=== PATIENT | female | born 1990 | race Caucasian/White ===

== ENCOUNTER 2019-10-03 20:54 | Emergency (ER) | payer OTHER ==
[~2019-10-03] VITALS: Ht 160 cm; Wt 79.8 kg
[~2019-10-03 20:54] MED LIST: CEFU250T PO
[2019-10-03] MEDS ORDERED: LIDOCAINE 1% INJ 20 ML 20 ML VIAL ONE (21:06)
[2019-10-03] MEDS ORDERED: AMOX-358 PO (21:23)
--- NOTE | 2019-10-03 21:23 | ED General ---
General Chief Complaint: Bite-Animal/Human/Insect Stated Complaint: DOG BITE INSIDE MOUTH Nursing Triage Note: PT. REPORTED SHE WAS LYING ON THE [place] AND HER DOG WAS LAYING BY HER AND REACHED UP AND BIT HER UNDER HER LIP ON THE LEFT SIDE INSIDE OF HER MOUTH. Nursing Sepsis Screen: No Definite Risk Source of Information: Patient, RN/MD Exam Limitations: No Limitations History of Present Illness Date Seen by Provider: Oct 03, 2019 Time Seen by Provider: 20:50 Initial Comments This patient is a 29-year-old female presents to the emergency department after being hit her home pet dog. Patient is a laceration to her upper lip between her lip and her upper gums along the maxilla inside the mouth no other lacerations seen. No active bleeding at this time. Patient states the animal has all the shots and is a family pet. Incident was provoked and accidentally. Timing/Duration: 1/2 Hour Severity: Mild Associated Systoms: Denies Symptoms Allergies and Home Medications Allergies Coded Allergies: tramadol (Verified Allergy, Mild, 08/16/15) Home Medications Cefuroxime Axetil 250 Mg Tablet, 250 MG PO BID Prescribed by: ROGER CAMERON on 08/16/152033 Patient Home Medication List Home Medication List Reviewed: Yes Review of Systems Review of Systems Constitutional: see HPI EENTM: see HPI; No no symptoms reported, No ear discharge, No hearing loss, No ear pain, No blurred vision, No double vision, No eye pain, No tearing, No visi on loss, No dental problems, No hoarseness, No mouth pain, No mouth swelling, No epistaxis, No nose congestion, No nose pain, No throat pain, No throat swelling, No other Respiratory: No no symptoms reported, No see HPI, No cough, No dyspnea on exertion, No hemoptysis, No orthopnea, No phlegm, No short of breath, No stridor, No wheezing, No other Cardiovascular: No no symptoms reported, No see HPI, No chest pain, No edema, No Hx of Intervention, No palpitations, No syncope, No vascular heart diseas, No other Gastrointestinal: No RUQ, No LUQ, No RLQ, No LLQ, No no symptoms reported, No see HPI, No abdominal pain, No constipation, No diarrhea, No dysphagia, No hematemesis, No heartburn, No jaundice, No loss of appetite, No melena, No nausea, No vomiting, No other Genitourinary: No no symptoms reported, No see HPI, No decreased output, No discharge, No dysuria, No frequency, No hematuria, No hesitancy, No incontinence, No nocturia, No pain, No other Skin: No no symptoms reported; see HPI; No change in color, No change in hair/nails, No dryness, No hx of skin cancer, No lesions, No lumps, No pruritus, No rash, No other All Other Systems Reviewed Negative Unless Noted: Yes Past Alistrn-Gwykzc-Wnnlgq Hx Patient Social History Recent Foreign Travel: No Contact w/Someone Who Travel: No Recent Infectious Disease Expo: No Seasonal Allergies Seasonal Allergies: No Past Medical History Gallbladder, Tonsillectomy Reproductive Disorders: No Sexually Transmitted Disease: No HIV/AIDS: No Adverse Reaction/Blood Tranf: No Physical Exam Vital Signs Vital Signs - First Documented 10/03/19 20:58 Temp 36.6 Pulse 93 Resp 18 B/P (MAP) 142/85 (104) Pulse Ox 100 O2 Delivery Room Air Capillary Refill : Less Than 3 Seconds Height, Weight, BMI Height: 5'3" Weight: 165lbs. oz. 74.217920li; 31.00 BMI Method:Stated General Appearance: No Apparent Distress, WD/WN HEENT: PERRL/EOMI, TMs Normal, Normal ENT Inspection, Pharynx Normal, Other (patient has a laceration inside the mouth for the upper lip meets the upper gum. Laceration is about 1 cm. No active bleeding) Respiratory: Chest Non Tender, Lungs Clear, Normal Breath Sounds, No Accessory Muscle Use, No Respiratory Distress Cardiovascular: Regular Rate, Rhythm, No Edema, No Gallop, No JVD, No Murmur, Normal Peripheral Pulses Skin: Normal Color, Warm/Dry Procedures/Interventions Wound Location: Other (oral cavity this patient in the upper lip in the maxillary gum.) Wound's Depth, Shape: superficial, linear Wound Explored: clean Irrigated w/ Saline (ccs): 200 Anesthesia: 1% Lidocaine Suture: Monocryl (Polysorb 5.0) Suture Size: 5-0 F5-2 Number of Sutures: 1 Progress Sutures with one rskqpp-dp-wknro stitch to bring approximate edges. Patient tolerated well. Progress/Results/Core Measures Suspected Sepsis Recent Fever Within 48 Hours: No Infection Criteria Present: None New/Unexplained Altered Menta: No Sepsis Screen: No Definite Risk SIRS Temperature: Pulse: 93 Respiratory Rate: 18 Blood Pressure 142 /85 Mean: 104 Results/Orders My Orders Orders - JERRY DAVISON MD Lidocaine 1% Inj 20 Ml (Xylocaine 1% Inj (10/03/19 21:06) Vital Signs/I&O 10/03/19 20:58 Temp 36.6 Pulse 93 Resp 18 B/P (MAP) 142/85 (104) Pulse Ox 100 O2 Delivery Room Air Capillary Refill : Less Than 3 Seconds Blood Pressure Mean: 104 Progress Note : Time: 21:21 Progress Note Patient doing well. Patient will have a tetanus shot prior to discharge. Suture in place. Patient is aware that the suture may dissolve within a week. Patient should not pull on suture material. Take antibiotics as instructed. Have clear liquid diet and advance as tolerated after sutures haven't dissolved. Follow-up with PCP in 2-3 days Departure Impression Primary Impression: Dog bite Additional Impression: Lip laceration Disposition: 01 HOME, SELF-CARE Condition: Stable Departure-Patient Inst. Decision time for Depature: 21:22 Referrals: NO,LOCAL PHYSICIAN (PCP) Primary Care Physician Patient Instructions: Laceration Repair, Animal Bites (DC) Add. Discharge Instructions: Patient is aware that the suture may dissolve within a week. Patient should not pull on suture material. Take antibiotics as instructed. Have clear liquid diet and advance as tolerated after sutures haven't dissolved. Follow-up with PCP in 2-3 days All discharge instructions reviewed with patient and/or family. Voiced understanding. Scripts Amoxicillin/Potassium Clav (Augmentin 875-125 Tablet) 1 Each Tablet 1 EACH PO BID, #14 TAB 0 Refills Prov: JERRY DAVISON MD 10/03/19 JERRY DAVISON MD Oct 03, 2019 21:23
[2019-10-03] MEDS ORDERED: TETANUS & DIPHTHERIA TOX,ADULT 0.5 ML (TENIVAC) IM ONE (21:30)
[2019-10-03 21:41] VITALS: BP 142/85
--- OUTSIDE RECORDS SUMMARY | 2019-10-03 22:12 | XMS REPORT | Encounter Summary ---
Author Author [facility] Organization [facility] Address Unknown Phone Unavailable Care Team Providers Care Band Director Name Role Phone PCP Unavailable Reason for Visit * (Routine) Referred By Contact Referred To Contact Status Reason Specialty Diagnoses / [place] [address] [facility] [address] [place] [address] Closed Diagnoses state, incidental P rocedures US OB > = 14 weeks Transabdominal (Anatomy screen) Encounter Details Care Team Description Date Type Department state, incidental 08/07/2014 [facility] [address] [place] [address] Social History Date Tobacco Use Types Packs/Day Years Used Never Assessed Sex Assigned at Date Recorded Not on file Industry Job Start Date Occupation Not on file Not on file Not on file Travel End Travel History Travel Start No recent travel history available. documented as of this encounter Medications at Time of Discharge Start Date End Date Medication Sig Dispensed Refills 06/12/2014 06/13/2015 TYLENOL PM EXTRA STRENGTH Take by 0 25-500 mg Tab mouth. documented as of this encounter Plan of Treatment Not on filedocumented as of this encounter Visit Diagnoses Diagnosis state, incidental documented in this encounter
--- OUTSIDE RECORDS SUMMARY | 2019-10-03 22:12 | XMS REPORT | Encounter Summary ---
Author Author [facility] Organization [facility] Address Unknown Phone Unavailable Care Team Providers Care Interventional Technologist Name Role Phone PCP Unavailable Reason for Visit * Reason Comments Chest pain Pt was chasing her horses t his AM and started to have right sided neck pain, chest pain and SOA and dizziness and she's tripping over her feet. She started to get sweaty when she was changing her kids diaper. Pt is also nauseated. Encounter Details Care Team Description Date Type Department Nate Cabrales MD [address] [place] [address] [phone] Acute chest pain (Primary Dx) 06/10/[address] [address] Social History Date Tobacco Use Types Packs/Day Years Used Never Smoker Smokeless Tobacco: Never Used Drinks/Week oz/Week Comments Alcohol Use No Sex Assigned at Date Recorded Not on file Industry Job Start Date Occupation Not on file Not on file Not on file Travel End Travel History Travel Start No recent travel history available. documented as of this encounter Last Filed Vital Signs Reading Time Taken Comments Vital Sign 104/77 06/10/2017 3:30 PM CDT Blood Pressure 74 06/10/2017 3:30 PM CDT Pulse 36.6 C (97.9 F) 06/10/2017 1:49 PM CDT Temperature 18 06/10/2017 1:47 PM CDT Respiratory Rate 100% 06/10/2017 3:30 PM CDT Oxygen Saturation - - Inhaled Oxygen Concentration 64.9 kg (143 lb) 06/10/2017 1:47 PM CDT Weight 160 cm (5' 3") 06/10/2017 1:47 PM CDT Height 25.33 06/10/2017 1:47 PM CDT Body Mass Index documented in this encounter Discharge Instructions * Attachments The following attachments cannot be sent through Care Everywhere.* CHEST PAIN, UNCERTAIN CAUSE (LAO) * SHORTNESS OF BREATH (DYSPNEA) (LAO) documented in this encounter Medications at Time of Discharge Start Date End Date Medication Sig Dispensed Refills BUPROPION HCL (WELLBUTRIN Take by 0 SR ORAL) mouth. documented as of this encounter ED Notes * Nate Cabrales MD - 06/10/2017 2:49 PM CDT 06/10/2017 [facility] History Chief Complaint Patient presents with Chest pain Pt was chasing her horses this AM and started to have right sided neck pain, c hest pain and SOA and dizziness and she's tripping over her feet. She started to get sweaty when she was changing her kids diaper. Pt is also nauseated. HPI 47-year-old female presents today complaining of chest pain and pressure, patien t states she was chasing horses, stated she started having shortness of breath, dizziness, felt like she was having a hard time breathing, patient states she wa s feeling nauseated, patient states she is feeling better now but still feels ch est tightness shortness of breath and pain in her back, patient states she is ta kayleigh a weight loss medication and has been taking it for a year, she is not sure exactly what in it, patient denies any fever chills cough, denies ever having t hese symptoms before. States they are improved but still mildly present. Past Medical History: Diagnosis Date Depression Past Surgical History: Procedure Laterality Date CHOLECYSTECTOMY NM REMOVAL GALLBLADDER Family History Problem Relation Age of Onset Clotting disorder Mother Blood clot in vein; Alcohol abuse Father Family history of alcoholism; Social History Substance Use Topics Smoking status: Never Smoker Smokeless tobacco: Never Used Alcohol use No Review of Systems Constitutional: Negative. HENT: Negative. Eyes: Negative. Respiratory: Negative. Cardiovascular: Negative. Gastrointestinal: Negative. Endocrine: Negative. Genitourinary: Negative. Musculoskeletal: Negative. Skin: Negative. Allergic/Immunologic: Negative. Neurological: Negative. Hematological: Negative. Psychiatric/Behavioral: Negative. All other systems reviewed and are negative. Physical Exam BP 102/65 | Pulse 79 | Temp 36.6 C (97.9 F) | Resp 18 | Ht 1.6 m (5' 3") | Wt 64.9 kg (143 lb) | LMP 06/08/2017 | SpO2 100% | BMI 25.33 kg/m Weight Method: Stated Physical Exam Constitutional: She is oriented to person, place, and time. She appears well-dev eloped and well-nourished. No distress. HENT: Head: Normocephalic and atraumatic. Nose: Nose normal. Mouth/Throat: Oropharynx is clear and moist. Eyes: Conjunctivae and EOM are normal. Neck: Normal range of motion. Neck supple. Cardiovascular: Normal rate, regular rhythm and normal heart sounds. Exam revea ls no gallop and no friction rub. Pulmonary/Chest: Effort normal and breath sounds normal. No respiratory distress . She has no wheezes. She exhibits no tenderness. Abdominal: Soft. Bowel sounds are normal. She exhibits no distension. There is n o tenderness. There is no rebound and no guarding. Musculoskeletal: Normal range of motion. She exhibits no edema or tenderness. Neurological: She is alert and oriented to person, place, and time. No cranial n erve deficit. She exhibits normal muscle tone. Coordination normal. Skin: Skin is warm and dry. No rash noted. She is not diaphoretic. No erythema. Psychiatric: She has a normal mood and affect. Her behavior is normal. Thought c ontent normal. Nursing note and vitals reviewed. ED Course Procedures MDM The labs from this visit are Results for orders placed or performed during the hospital encounter of 06/10/17 (from the past 24 hour(s)) Complete Blood Count and Differential (manual count if needed) Result Value Ref Range WBC 6.23 4.00 - 11.00 TH/uL RBC 4.74 4.00 - 5.00 MIL/uL Hemoglobin 14.0 12.0 - 15.0 g/dL Hematocrit 41 36 - 45 % MCV 85 80 - 99 fL MCH 30 27 - 34 pg MCHC 35 32 - 36 % RDW 13.3 9.0 - 14.5 % Platelet Count 240 140 - 400 TH/uL MPV 10.0 9.4 - 12.3 fL Nucleated RBCs 0 0 - 0 /100 % Neutrophils 65 45 - 78 % %Lymphocytes 28 15 - 47 % %Monocytes 6 0 - 12 % %Eosinophils 0 0 - 7 % %Basophils 0 0 - 2 % % Imm Grans 0 0 - 1 % # Granulocytes 4.09 1.70 - 6.80 TH/uL # Lymphocytes 1.74 1.00 - 3.30 TH/uL # Monocytes 0.37 0.20 - 0.90 TH/uL # Eosinophils 0.02 0.00 - 0.40 TH/uL # Basophils 0.02 0.00 - 0.10 TH/uL Comprehensive Metabolic Panel Result Value Ref Range Sodium 145 133 - 147 MEQ/L Potassium 3.7 3.5 - 5.3 MEQ/L Chloride 106 96 - 112 MEQ/L Carbon Dioxide 21 20 - 32 MEQ/L Anion Gap 17 5 - 17 Calcium 10.3 8.4 - 10.5 mg/dL Glucose 85 70 - 100 mg/dL Protein Total Serum 8.7 (H) 6.0 - 8.2 g/dL Albumin 5.3 (H) 3.5 - 5.0 g/dL Alkaline Phosphatase 56 42 - 140 IU/L Alanine Aminotransferase 41 13 - 69 IU/L Aspartate Aminotransferase 27 15 - 46 IU/L Bilirubin Total 0.9 0.2 - 1.3 mg/dL Blood Urea Nitrogen 12 7 - 26 mg/dL Creatinine 0.9 0.4 - 1.1 mg/dL GFR Female AA 89 60 - 200 GFR Female Non-AA 74 60 - 200 Troponin Result Value Ref Range Troponin <0.01 0.00 - 0.03 ng/mL D Dimer Result Value Ref Range D Dimer <0.27 0.00 - 0.40 ug/mL FEU The radiology results are XR Chest single view frontal Final Result No acute cardiopulmonary process. 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 There are not any ST c hanges concerning for ischemia. Work appear normal, recommended stopping diet medication, and following up with primary doctor. States there is no chance she is . ED Clinical Impression 1. Acute chest pain Patient ED Dispo ED Disposition Discharge Nate Cabrales MD 06/10/17 4210 * Grupo Carvalho RN - 06/10/2017 2:27 PM CDT Pt. Provided warm blanket upon request. documented in this encounter Plan of Treatment Not on filedocumented as of this encounter Procedures Comments Procedure Name Priority Date/Time Associated Diag nosis XR CHEST SINGLE VIEW STAT 06/10/2017 FRONTAL 2:24 PM CDT TROPONIN STAT 06/10/2017 2:03 PM CDT D DIMER STAT 06/10/2017 2:03 PM CDT COMPREHENSIVE METABOLIC STAT 06/10/2017 PANEL 2:03 PM CDT CBC AND DIFF (MANUAL DIFF STAT 06/10/2017 IF NECESSARY) 2:03 PM CDT ECG STAT 06/10/2017 1:49 PM CDT documented in this encounter Results * XR Chest single view frontal (06/10/2017 2:24 PM CDT) Specimen Impressions Performed At No acute cardiopulmonary process. ANJELICA Narrative Performed At Patient: VICKIE VALDEZ DOREENCLIFFORD Sex#: F # [id number] Aidan#: [id number] Location: [place] [address] Procedure Requested: [id number] XR CHEST SINGLE VIEW FRONTAL Reason for Exam: chest pain Exam Ordered: 06/10/2017 135 9 Exam Date/Time: 06/10/2017 1424 Begin exam date/time: 06/10/2017 1404 XR CHEST SINGLE VIEW FRONTAL INDICATION: chest pain COMPARISON STUDY: None. FINDINGS: Lungs and Pleura: No focal airspace dis ease or consolidation. The tracheobronchial tree and hilar structu res are normal. No pleural effusion or pneumothorax. Heart and Mediastinum: The cardiomedias tinal silhouette is normal. The great vessels of the thorax are unremar kable. Bones: The skeletal structures are unre markable. Procedure Note Interface, Rad Results In - 06/10/2017 2:39 PM CDT Patient: VICKIE VALDEZ Sex#: F # [id number] Aidan#: [id number] Location: [place] [address] Procedure Requested: [id number] XR CHEST SINGLE VIEW FRONTAL Reason for Exam: chest pain Exam Ordered: 06/10/2017 1359 Exam Date/Time: 06/10/2017 1424 Begin exam date/time: 06/10/2017 1404 XR CHEST SINGLE VIEW FRONTAL INDICATION: chest pain COMPARISON STUDY: None. FINDINGS: Lungs and Pleura: No focal airspace disease or consolidation. The tracheobronchial tree and hilar structures are normal. No pleural effusion or pneumothorax. Heart and Mediastinum: The cardiomediastinal silhouette is normal. The great vessels of the thorax are unremarkable. Bones: The skeletal structures are unremarkable. IMPRESSION No acute cardiopulmonary process. Performing Organization Address [facility] one Number ANJELICA * D Dimer (06/10/2017 2:03 PM CDT) [facility] D Dimer <0.27Comment: Cutoff value for 0.00 - 0.40 ug/ mL [facility] exclusion of venous [facility]U [facility] thromboembolism is <0.40 ug/mL FEU. Specimen Blood Performing Organization Address [facility] one Number [facility] [address] [place] [address] * Troponin (06/10/2017 2:03 PM CDT) [facility] Troponin <0.01 0.00 - 0.03 ng/mL [facility] Comment: [facility] Troponin Value Interpretation 0.00 - 0.03 Healthy 0.04 - 0.12 Increased Cardiac Risk >0.12 Myocardial Infarction Troponin may not become elevated until 6 to 8 hours after onset of symptoms. Specimen Blood Performing Organization Address [facility] one Number [facility] [address] [place] [address] * Comprehensive Metabolic Panel (06/10/2017 2:03 PM CDT) [facility] Sodium 145 133 - 147 MEQ/L [facility] Potassium 3.7 3.5 - 5.3 MEQ/L [facility] Chloride 106 96 - 112 MEQ/L [facility] Carbon Dioxide 21 20 - 32 MEQ/L [facility] Anion Gap 17 5 - 17 [facility] Calcium 10.3 8.4 - 10.5 mg/dL [facility] Glucose 85 70 - 100 mg/dL [facility] Protein Total 8.7 (H) 6.0 - 8.2 g/dL [facility] Serum [facility] Albumin 5.3 (H) 3.5 - 5.0 g/dL [facility] Alkaline 56 42 - 140 IU/L [facility] Phosphatase [facility] Alanine 41 13 - 69 IU/L [facility] Aminotransferas [facility] e Aspartate 27 15 - 46 IU/L [facility] Aminotransferas [facility] e Bilirubin Total 0.9 0.2 - 1.3 mg/dL [facility] Blood Urea 12 7 - 26 mg/dL [facility] Nitrogen [facility] Creatinine 0.9 0.4 - 1.1 mg/dL [facility] eGFR Female AA 89 60 - 200 [facility] Comment: [facility] Chronic Kidney Disease less than 60 mL/min/1.73 sq.m Kidney failure less than 15 mL/min/1.73 sq.m eGFR Female 74 60 - 200 [facility] Non-AA Comment: [facility] Chronic Kidney Disease less than 60 mL/min/1.73 sq.m Kidney failure less than 15 mL/min/1.73 sq.m Specimen Blood Performing Organization Address City/State/Zipcode Ph one Number [facility] [address] [place] [address] * Complete Blood Count and Differential (manual count if needed) (06/10/2017 2:03 PM CDT) WBC 6.23 4.00 - 11.00 TH/uL [facility] RBC 4.74 4.00 - 5.00 MIL/uL [facility] Hemoglobin 14.0 12.0 - 15.0 g/dL [facility] Hematocrit 41 36 - 45 % [facility] MCV 85 80 - 99 fL [facility] MCH 30 27 - 34 pg [facility] MCHC 35 32 - 36 % [facility] RDW 13.3 9.0 - 14.5 % [facility] Platelet Count 240 140 - 400 TH/uL [facility] MPV 10.0 9.4 - 12.3 fL [facility] Nucleated RBCs 0 0 - 0 /100 [facility] % Neutrophils 65 45 - 78 % [facility] %Lymphocytes 28 15 - 47 % [facility] %Monocytes 6 0 - 12 % [facility] %Eosinophils 0 0 - 7 % [facility] %Basophils 0 0 - 2 % [facility] % Imm Grans 0 0 - 1 % [facility] # Granulocytes 4.09 1.70 - 6.80 TH/uL [facility] # Lymphocytes 1.74 1.00 - 3.30 TH/uL [facility] # Monocytes 0.37 0.20 - 0.90 TH/uL [facility] # Eosinophils 0.02 0.00 - 0.40 TH/uL [facility] # Basophils 0.02 0.00 - 0.10 TH/uL [facility] Specimen Blood Performing Organization Address City/State/[facility] Ph one Number [facility] [address] [place] [address] * Electrocardiogram (ECG) (06/10/2017 1:49 PM CDT) Specimen Narrative Performed At [facility] ED Test Date: 2017-06-10 Pat Name: VICKIE VALDEZ Department: ERJ Room: [facility] 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 : 1990 Requested By: ALYSSA PISANO Order Number: [id number] Reading MD: Measurements Intervals [place] Rate: 82 P: 55 NM: 152 QRS: 61 QRSD: 88 T: 51 QT: 404 QTc: 472 Interpretive Statements SINUS RHYTHM Procedure Note Interface, External Ris In - 06/10/2017 1:50 PM CDT [facility] ED Test Date: 2017-06-10 Pat Name: VICKIE VALDEZ Department: ER Room: [facility] Gender: Female 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: [id number] : 1990 Requested By: ALYSSA PISANO Order Number: [id number] Reading MD: Measurements Intervals [place] Rate: 82 P: 55 NM: 152 QRS: 61 QRSD: 88 T: 51 QT: 404 QTc: 472 Interpretive Statements SINUS RHYTHM Performing Organization Address City/State/Zipcode Ph one Number [email or web address] documented in this encounter Visit Diagnoses Diagnosis Acute chest pain Unspecified chest pain documented in this encounter Administered Medications Action Date Dose Rate Site Medication Order MAR Action 06/10/2017 3:07 PM CDT 4 mg ondansetron (ZOFRAN) injection 4 mg Given 4 mg, Intravenous, Once, Thu06/10/17 at 1452, For 1 dose 06/10/2017 3:08 PM CDT 1,000 mL sodium chloride 0.9% (NS) IV Bolus Bolus from 1,000 mL, Intravenous, Once, Thu06/10/17 Bag at 1452, For 1 dose documented in this encounter
--- OUTSIDE RECORDS SUMMARY | 2019-10-03 22:12 | XMS REPORT | Clinical Summary ---
Author Author [facility] Organization [facility] Address Unknown Phone Unavailable Care Team Providers Care Animal Warden Name Role Phone PCP Unavailable Allergies Comments Active Allergy Reactions Severity Noted Date Tramadol Itching 05/11/2014 Medications End Date Status Medication Sig Dispensed Refills Start Date Active BUPROPION HCL (WELLBUTRIN Take by 0 SR ORAL) mouth. Active Problems Problem Noted Date 05/11/2014 Family History Medical History Relation Name Comments Alcohol abuse Father Family history of a lcoholism; Clotting disorder Mother Blood clot in vein; Relation Name Status Comments Father Mother Social History Date Tobacco Use Types Packs/Day Years Used Never Smoker Smokeless Tobacco: Never Used Drinks/Week oz/Week Comments Alcohol Use No Sex Assigned at Date Recorded Not on file Industry Job Start Date Occupation Not on file Not on file Not on file Travel End Travel History Travel Start No recent travel history available. Last Filed Vital Signs Reading Time Taken [...] 06/10/2017 1:47 PM CDT Body Mass Index Plan of Treatment Health Maintenance Due Date Last Done Comments Td # 1990 Cervical Cancer Screening 2009 via Pap Smear Influenza Vaccine (#1) 2020 Pneumococcal Vaccine: Aged Out No longer eligib le based on patient's age to Pediatrics (0 to 5 Years) complete this topic and At-Risk Patients (6 to 64 Years) Results Not on filefrom Last 3 Months Advance Directives For more information, please contact: [phone] Patient Nut Chopper Explanation Type Date Recorded Advance Directives and Living Will Power of Carton Inspector
--- OUTSIDE RECORDS SUMMARY | 2019-10-03 22:12 | XMS REPORT | Encounter Summary ---
Author Author [facility] Organization [facility] Address Unknown Phone Unavailable Care Team Providers Care Speech Language Therapist Name Role Phone PCP Unavailable Encounter Details Care Team Description Date [place] [address] [facility] [address] [place] [address] [phone] 07/12/2014 Hist-Appointmen [facility] CL t Social History Date Tobacco Use Types Packs/Day Years Used Never Assessed Sex Assigned at Date Recorded Not on file Industry Job Start Date Occupation Not on file Not on file Not on file Travel End Travel History Travel Start No recent travel history available. documented as of this encounter Last Filed Vital Signs Reading Time Taken Comments Vital Sign 124/72 07/12/2014 9:14 AM CDT Blood Pressure 80 07/12/2014 9:14 AM CDT Pulse 36.7 C (98 F) 07/12/2014 9:14 AM CDT Temperature - - Respiratory Rate - - Oxygen Saturation - - Inhaled Oxygen Concentration 71.7 kg (158 lb) 07/12/2014 9:14 AM CDT Weight 161.3 cm (5' 3.5") 07/12/2014 9:14 AM CDT Height 27.55 07/12/2014 9:14 AM CDT Body Mass Index documented in this encounter Progress Notes * Ledy Munguia MD - 07/12/2014 9:00 AM CDT Chief Complaint SONIA History of Present Illness 24 yo G1 @ 15 weeks presents for SONIA without complaints. MORROW resolved with clar itin use. Active Problems 1. (V22.2) Current Meds 1. Tylenol PM Extra Strength 500-25 MG Oral Tablet; Therapy: 12Jun2014 to Recorded Allergies 1. tramadol Vitals Signs [Data Includes: Current Encounter] Recorded: 12Jul2014 09:14AM Height: 5 ft 3.5 in Weight: 158 lb BMI Calculated: 27.55 BSA Calculated: 1.76 Blood Pressure: 124 / 72 Temperature: 98 F Heart Rate: 80 LMP: 15 weeks 1 day Results/Data Exam [Data Includes: Last 3 Months] 12Jul2014Apr11May2014 Systolic 124 104 128 Diastolic 72 76 70 Weight 158 lb 155 lb 2 oz 155 lb 2 oz Appearance, Urine yellow,clear Glucose Urine neg Urine Protein, Qualitative neg Leukocyte Alkaline Phosphatase neg Blood neg neg neg Nitrite neg GLUCOSE neg neg KETONE neg pH neg Protein neg neg OB Free Text: Completed at this visit: FHTs: 160 Reviewed progenity WNL Return to clinic: in 4 weeks Ultrasound Ordered to complete in 3-4 weeks Assessment 1. (V22.2) Plan 1. US OB more than = 14 Weeks Transabdominal (Anatomy screen); Status:Active; Requested for:12Jul2014; Signatures Electronically signed by : Ledy Munguia M.D.; Jul 12 2014 10:18AM PUNCH BOX TENDER (Author ) * Ledy Munguia MD - 07/12/2014 9:00 AM CDT Clinical Summary Patient Details for VICKIE GRAF Preferred Name Female Sex [id number], [place], [address] Address [place] Language 1990 Born Declined Race Declined Ethnicity Today's Appointment Ledy Munguia M.D. Provider 12 Jul 2014 09:00 AM Appointment Reason for Visit Issues Reviewed : Current Health Issues Past Surgical History History of Cholecystectomy Medications Medications: Medication Instructions Tylenol PM Extra Strength 500-25 MG Oral Tablet Allergies and Adverse Reactions tramadol; Reactions: Itching Vital Signs Date/Time 07/12/2014 9:14:00 AM Blood Pressure 124 / 72 Temperature 98 F Heart Rate 80 bpm Height 5 ft 3.5 in Weight 158 lb BMI Calculated 27.55 kg/m2 BSA Calculated 1.76 m2 LMP 15 weeks 1 day Results Dipstick, Collected/Examined: 12-Jul-2014 09:24AM : Value = yellow,clear; Normal : Value = neg; Normal : Value = neg; Normal : Value = neg; Normal Est: Value = neg; Normal : Value = neg; Normal Treatment Plans Appointment: Provider Date/Time Location Ledy Munguia M.D. 09 Aug 2014 09:00 AM [facility] Interventions US OB more than = 14 Weeks Transabdominal (Anatomy screen); To Be Done: 12 Jul 2014 Document Details [facility] Site Name Phone 12 Jul 2014 12:00 PM Created Date/Time [address] [address], [address],[place], [place],[address] Site Address Fax documented in this encounter Plan of Treatment Not on filedocumented as of this encounter Procedures Comments Procedure Name Priority Date/Time Associated Diag nosis URINALYSIS (INCLUDES Routine 07/12/2014 MICROSCOPIC REVIEW, IF 9:24 AM CDT INDICATED) documented in this encounter Results * Urinalysis (07/12/2014 9:24 AM CDT) Color, UA yellow,clear 0 OFFICE ENTERED Hemoglobin neg 0 OFFICE ENTERED Urine Glucose neg 0 OFFICE ENTERED Protein, Ur neg 0 OFFICE ENTERED Leukocyte neg 0 OFFICE ENTERED Esterase Nitrite Urine neg 0 OFFICE ENTERED Specimen Performing Organization Address City/State/[facility] Ph one Number OFFICE ENTERED documented in this encounter Visit Diagnoses Not on filedocumented in this encounter
--- OUTSIDE RECORDS SUMMARY | 2019-10-03 22:13 | XMS REPORT | Encounter Summary ---
Author Author [facility] Organization [facility] Address Unknown Phone Unavailable Care Team Providers Care Marine Equipment Preservation Inspector Name Role Phone PCP Unavailable Encounter Details Care Team Description Date [place] [address] [facility] [address] [place], [place] [address] 05/11/2014 [facility] Social History Date Tobacco Use Types Packs/Day Years Used Never Assessed Sex Assigned at Date Recorded Not on file Industry Job Start Date Occupation Not on file Not on file Not on file Travel End Travel History Travel Start No recent travel history available. documented as of this encounter Last Filed Vital Signs Reading Time Taken Comments Vital Sign 128/70 05/11/2014 10:07 AM DYED RAW STOCK BLOWER FEEDER Blood Pressure 70 05/11/2014 10:07 AM DYED RAW STOCK BLOWER FEEDER Pulse 36.6 C (97.8 F) 05/11/2014 10:07 AM DYED RAW STOCK BLOWER FEEDER Temperature - - Respiratory Rate - - Oxygen Saturation - - Inhaled Oxygen Concentration 70.4 kg (155 lb 2.1 oz) 05/11/2014 10:07 AM DYED RAW STOCK BLOWER FEEDER Weight 161.3 cm (5' 3.5") 05/11/2014 10:07 AM DYED RAW STOCK BLOWER FEEDER Height 27.05 05/11/2014 10:07 AM DYED RAW STOCK BLOWER FEEDER Body Mass Index documented in this encounter Progress Notes * Ledy Munguia MD - 05/11/2014 10:00 AM DYED RAW STOCK BLOWER FEEDER Clinical Summary Patient Details for VICKIE GRAF Preferred Name Female Sex [id number], [place], [address] Address [place] Language 1990 Born Declined Race Declined Ethnicity Today's Appointment Ledy Munguia M.D. Provider 11 May 2014 10:00 AM Appointment Reason for Visit Issues Reviewed : Current Health Issues Medications Medication not documented. Allergies and Adverse Reactions tramadol; Reactions: Itching Vital Signs Date/Time 05/11/2014 10:07:00 AM Blood Pressure 128 / 70 Temperature 97.8 F Heart Rate 70 bpm Height 5 ft 3.5 in Weight 155 lb 2.00 oz BMI Calculated 27.05 kg/m2 BSA Calculated 1.75 m2 LMP 22Mar2014 Results Results not documented. Treatment Plans Cystic Fibrosis Mutation; To Be Done: 11 May 2014 Interventions Profile 2; To Be Done: 11 May 2014 Urine Culture; To Be Done: 11 May 2014 Document Details [facility] Site Name Phone 11 May 2014 10:26 AM Created Date/Time [address] [facility], [facility] [address],[place],[address] Site Address Fax RAW STOCK BLOWER FEEDER * Ledy Munguia MD - 05/11/2014 10:00 AM DYED RAW STOCK BLOWER FEEDER Chief Complaint New OB History of Present Illness 24 yo G1 @ 7 weeks by LMP presents for her first OB visit. She notes some nause a, no vomiting. Fatigue. Did have one episode of dark spotting that she thinks w as implantation bleeding. Review of Systems HEENT Normal. Resp Normal. CV. Normal. GI. Normal. /ASSISTANT PRESS OPERATOR. Normal. MS/Rheum. Normal. Endo. Normal. Neuro. Normal. Heme. Normal. Derm. Normal. Psych. Normal. Active Problems 1. (V22.2) Past Medical History 1. No pertinent past medical history Surgical History 1. History of Cholecystectomy Family History 1. Family history of Blood clot in vein : Mother 2. Family history of alcoholism (V17.0) : Father Social History Non-smoker (V49.89) Allergies 1. tramadol Vitals Signs [Data Includes: Current Encounter] Recorded: 11May2014 10:07AM Height: 5 ft 3.5 in Weight: 155 lb 2 oz BMI Calculated: 27.05 BSA Calculated: 1.75 Blood Pressure: 128 / 70 Temperature: 97.8 F Heart Rate: 70 LMP: 22Mar2014 Results/Data Exam [Data Includes: Last 3 Months] 11May2014 Systolic 128 Diastolic 70 Weight 155 lb 2 oz Completed at this visit: New OB packet given New OB labs Reviewed diet, exercise, travel, exposure during Reviewed course of care Due at next visit: Review aneuploidy screening Return to clinic: in 4 weeks Comments: LEONIE 01/02/15 Ultrasound Transvaginal ultrasound performed with CRL at 6 weeks 2 days, FHTs 11 3. Normal sac. Yolk sac still visible and separation of amnion and chorion. Both ovaries visualized and appear normal. No free fluid. Physical Exam HEENT:. Normal. Teeth:. Normal. Thyroid:. Normal. Breasts:. Normal. Lungs:. Normal. Heart:. Normal. Abdomen:. Normal. Musculoskeletal:. Normal. Extremities:. Normal. Skin:. Normal. Lymph Nodes:. Normal. Vulva:. Normal. Vagina:. Normal. Cervix:. Normal. Adnexa:. Normal. Rectum:. Normal. Pap Done:. No. Assessment 1. (V22.2) Plan 1. Cystic Fibrosis Mutation; Status:Hold For - Hold for Specimen Collection; Re quested for:11May2014; 2. Profile 2; Status:Active; Requested for:11May2014; 3. Urine Culture; Status:Active; Requested for:11May2014; Signatures Electronically signed by : Ledy Munguia M.D.; May 11 2014 11:36AM DYED RAW STOCK BLOWER FEEDER (Author ) RAW STOCK BLOWER FEEDER documented in this encounter Plan of Treatment Not on filedocumented as of this encounter Procedures Comments Procedure Name Priority Date/Time Associated Diag nosis URINALYSIS (INCLUDES Routine 05/11/2014 MICROSCOPIC REVIEW, IF 4:42 PM DYED RAW STOCK BLOWER FEEDER INDICATED) documented in this encounter Results * Urinalysis (05/11/2014 4:42 PM DYED RAW STOCK BLOWER FEEDER) Color, UA yellow,clear 0 OFFICE ENTERED pH Urine neg 0 OFFICE ENTERED Hemoglobin neg 0 OFFICE ENTERED Urine Ketones Urine neg 0 OFFICE ENTERED Glucose neg 0 OFFICE ENTERED Protein, Ur neg 0 OFFICE ENTERED Leukocyte neg 0 OFFICE ENTERED Esterase Specimen Performing Organization Address City/State/Zipcode Ph one Number OFFICE ENTERED documented in this encounter Visit Diagnoses Not on filedocumented in this encounter
--- OUTSIDE RECORDS SUMMARY | 2019-10-03 22:13 | XMS REPORT | Encounter Summary ---
Author Author [facility] Organization [facility] Address Unknown Phone Unavailable Care Team Providers Care Rolled Seat Trimmer Name Role Phone PCP Unavailable Encounter Details Care Team Description Date Type Department 06/15/2014 Hist-Telephone [facility] Social History Date Tobacco Use Types Packs/Day Years Used Never Assessed Sex Assigned at Date Recorded Not on file Industry Job Start Date Occupation Not on file Not on file Not on file Travel End Travel History Travel Start No recent travel history available. documented as of this encounter Progress Notes * Provider, MD Jelly - 06/15/2014 9:01 AM CDT Recorded as Task Date: 06/15/2014 09:02 AM, Created By: Priti Basilio Task Name: Call Back Assigned To: Priti Basilio Regarding Patient: VICKIE GRAF, Status: Active Comment: Priti Basilio - 15 Jun 2014 9:02 AM TASK CREATED Caller: Ansley, Other; Other; Progenity called wanting to know dx code for pt? Thx Ledy Latham - 15 Jun 2014 9:39 AM TASK REPLIED TO: Previously Assigned To Ledy Munguia v22 Priti Basilio - 15 Jun 2014 9:46 AM TASK EDITED Noted. LDM for progenity with information. To chart. ARSALAN Electronically signed by:Priti Basilio Jun 15 2014 9:47AM UNDER CUTTING MACHINE OPERATOR documented in this encounter Plan of Treatment Not on filedocumented as of this encounter Visit Diagnoses Not on filedocumented in this encounter
--- OUTSIDE RECORDS SUMMARY | 2019-10-03 22:13 | XMS REPORT | Continuity of Care Document ---
Author Organization Unknown Address Unknown Phone Unavailable Allergies Active Description Code Type Severity Reaction Onset Reported/Identified Relationship to Patient Clinical Status Yes tramadol [id number] Drug Allergy Mild N/A 08/16/2015 Medications There is no data. 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 Results There is no data. Encounters ACCT No. Visit Date/Time Discharge Status Pt. Type Provider Facility Loc./Unit Complaint [id number] 08/25/2019 09:20:00 08/25/2019 23:59: 59 CLS Outpatient [facility] [id number] 08/16/2015 19:24:00 016 21:01:00 DIS Emergency ROGER CAMERON APRN [facility] ER
--- OUTSIDE RECORDS SUMMARY | 2019-10-03 22:13 | XMS REPORT | Encounter Summary ---
Author Author [facility] Organization [facility] Address Unknown Phone Unavailable Care Team Providers Care Bending Machine Set Up Operator Name Role Phone PCP Unavailable Encounter Details Care Team Description Date Type Department 06/26/2014 Hist-Telephone [facility] Social History Date Tobacco Use Types Packs/Day Years Used Never Assessed Sex Assigned at Date Recorded Not on file Industry Job Start Date Occupation Not on file Not on file Not on file Travel End Travel History Travel Start No recent travel history available. documented as of this encounter Progress Notes * ProviderJelly MD - 06/26/2014 11:27 AM CDT Recorded as Task Date: 06/26/2014 11:28 AM, Created By: Domo Schreiber Task Name: Call Back Assigned To: Domo Schreiber Regarding Patient: VICKIE GRAF, Status: Active Comment: Domo Schreiber - 26 Jun 2014 11:28 AM TASK CREATED Caller: Self; ; Pt called with c/o intense MORROW's. Pt states she has to keep the lights off and is sometimes not able to get out of bed. Pt is currently taking Tylenol but it's n ot working. Pt wanting to know if there is something else she can try? Ledy Davey - 26 Jun 2014 2:45 PM TASK REPLIED TO: Previously Assigned To Ledy Mugnuia Ibuprofen 600 q 6 hrs is safe until 32 weeks . Hydrate and have a little caffiene TCMD Domo Schreiber - 26 Jun 2014 3:26 PM TASK EDITED Pt notified. AERN Electronically signed by:Domo Schreiber Jun 26 2014 3:26PM SKIP MINER documented in this encounter Plan of Treatment Not on filedocumented as of this encounter Visit Diagnoses Not on filedocumented in this encounter
--- OUTSIDE RECORDS SUMMARY | 2019-10-03 22:13 | XMS REPORT | Encounter Summary ---
Author Author [facility] Organization [facility] Address Unknown Phone Unavailable Care Team Providers Care Manager Cardiac Cath Name Role Phone PCP Unavailable Encounter Details Care Team Description Date [place] [address] [place] [address] [phone] 06/12/2014 Hist-Appointmen [facility] CL t Social History [...] Signs Reading Time Taken Comments Vital Sign 104/76 06/12/2014 9:06 AM CDT Blood Pressure 62 06/12/2014 9:06 AM CDT Pulse - - Temperature - - Respiratory Rate - - Oxygen Saturation - - Inhaled Oxygen Concentration 70.4 kg (155 lb 2.1 oz) 06/12/2014 9:06 AM CDT Weight - - Height 27.05 05/11/2014 10:07 AM PIPE JEEPER Body Mass Index documented in this encounter Progress Notes * Ledy Munguia MD - 06/12/2014 9:00 AM CDT Chief Complaint SONIA History of Present Illness 24 G1 @ 10 08/13 (6) presents for SONIA without complaints. Active Problems 1. (V22.2) Current Meds 1. Tylenol PM Extra Strength 500-25 MG Oral Tablet; Therapy: 12Jun2014 to Recorded Allergies 1. tramadol Vitals Signs [Data Includes: Current Encounter] Recorded: 12Jun2014 09:06AM Weight: 155 lb 2 oz BMI Calculated: 27.05 BSA Calculated: 1.75 Blood Pressure: 104 / 76 Heart Rate: 62 LMP: 10 6/7 weeks Results/Data Exam [Data Includes: Last 3 Months] 12Jun2014 Systolic 104 128 Diastolic 76 70 Weight 155 lb 2 oz 155 lb 2 oz Appearance, Urine yellow,clear Glucose Urine neg Urine Protein, Qualitative neg Leukocyte Alkaline Phosphatase neg Blood neg neg Nitrite neg GLUCOSE neg KETONE neg pH neg Protein neg OB Free Text: Completed at this visit: Progenloc Verifi drawn today Due at next visit: Order screening scan Return to clinic: in 4 weeks Ultrasound FHTs 168 Assessment 1. (V22.2) Plan 1. UA Dip Urinalysis; Status:Complete; Done: 12Jun2014 09:17AM Signatures Electronically signed by : Ledy Munguia M.D.; Jun 12 2014 10:44AM PIPE JEEPER (Author ) Electronically signed by : Ledy Munguia M.D.; Jun 12 2014 10:45AM PIPE JEEPER (Author ) * Ledy Munguia MD - 06/12/2014 9:00 AM CDT Clinical Summary Patient Details for VICKIE GRAF Preferred Name Female Sex [id number], [place], [address] Address [place] Language 1990 Born Declined Race Declined Ethnicity Today's Appointment Ledy Munguia M.D. Provider 12 Jun 2014 09:00 AM Appointment Reason for Visit Issues Reviewed : Current Health Issues Past Surgical History History of Cholecystectomy Medications Medications: Medication Instructions Tylenol PM Extra Strength 500-25 MG Oral Tablet Allergies and Adverse Reactions tramadol; Reactions: Itching Vital Signs Date/Time 06/12/2014 9:06:00 AM Blood Pressure 104 / 76 Heart Rate 62 bpm Weight 155 lb 2.00 oz BMI Calculated 27.05 kg/m2 BSA Calculated 1.75 m2 LMP 10 6/7 weeks Results Dip Urinalysis, Collected/Examined: 12-Jun-2014 09:17AM Urine: Value = yellow,clear; Normal Protein, Qualitative: Value = neg; Normal Urine: Value = neg; Normal Alkaline Phosphatase: Value = neg; Normal : Value = neg; Normal : Value = neg; Normal Treatment Plans Appointment: Provider Date/Time Location Ledy Munguia M.D. 12 Jul 2014 09:00 AM [facility] Interventions UA Dip Urinalysis; Done: 12 Jun 2014 Document Details [facility] Site Name Phone 12 Jun 2014 11:59 AM Created Date/Time [address] [facility], [facility] [address], [place],[facility] Site Address Fax documented in this encounter Plan of Treatment Not on filedocumented as of this encounter Procedures Comments Procedure Name Priority Date/Time Associated Diag nosis URINALYSIS (INCLUDES Routine 06/12/2014 MICROSCOPIC REVIEW, IF 9:17 AM CDT INDICATED) documented in this encounter Results * Urinalysis (06/12/2014 9:17 AM CDT) Appearance, yellow,clear 0 OFFICE ENTERED Urine Protein Urine neg 0 OFFICE ENTERED Qual Glucose Urine neg 0 OFFICE ENTERED Leukocyte neg 0 OFFICE ENTERED Alkaline Phosphatase Hemoglobin neg 0 OFFICE ENTERED Urine Nitrite Urine neg 0 OFFICE ENTERED Specimen Performing Organization Address City/State/[facility] Ph one Number OFFICE ENTERED documented in this encounter Visit Diagnoses Not on filedocumented in this encounter
--- OUTSIDE RECORDS SUMMARY | 2019-10-03 22:13 | XMS REPORT | Encounter Summary ---
Author Author [facility] Organization [facility] Address Unknown Phone Unavailable Care Team Providers Care Community Recreation Coordinator Name Role Phone PCP Unavailable Encounter Details Care Team Description Date Type Department 07/12/2014 Hist-Other [facility] Social History Date Tobacco Use Types Packs/Day Years Used Never Assessed Sex Assigned at Date Recorded Not on file Industry Job Start Date Occupation Not on file Not on file Not on file Travel End Travel History Travel Start No recent travel history available. documented as of this encounter Progress Notes * Provider, MD Jelly - 07/12/2014 9:39 AM CDT Recorded as Task Date: 07/12/2014 09:14 AM, Created By: Ledy Munguia Task Name: Schedule Tests Assigned To: Priti Basilio Regarding Patient: VICKIE GRAF, Status: Active Comment: Ledy Munguia - 12 Jul 2014 9:14 AM TASK CREATED OB Scan in 3-4 weeks please! TCMD Priti Basilio - 12 Jul 2014 9:39 AM TASK EDITED Noted. Order faxed. To chart. MERN Electronically signed by:Priti Basilio Jul 12 2014 9:39AM WREATH MAKER documented in this encounter Plan of Treatment Not on filedocumented as of this encounter Visit Diagnoses Not on filedocumented in this encounter
--- OUTSIDE RECORDS SUMMARY | 2019-10-03 22:13 | XMS REPORT | Encounter Summary ---
Author Author [facility] Organization [facility] Address Unknown Phone Unavailable Care Team Providers Care Fruit Shipper Name Role Phone PCP Unavailable Encounter Details Care Team Description Date [place] [address] [facility] [address] [place], [place] [address] [facility] [address] [place] [address] Social History Date Tobacco Use Types Packs/Day Years Used Never Assessed Sex Assigned at Date Recorded Not on file Industry Job Start Date Occupation Not on file Not on file Not on file Travel End Travel History Travel Start No recent travel history available. documented as of this encounter Plan of Treatment Not on filedocumented as of this encounter Procedures Comments Procedure Name Priority Date/Time Associated Diag nosis LAB SUMMARY 05/18/2014 8:10 AM CDT LAB SUMMARY 05/13/2014 6:36 AM [facility] LAB SUMMARY 05/12/2014 6:35 AM [facility] COMPLETE BLOOD COUNT AND Routine 05/11/2014 DIFFERENTIAL 11:04 AM [facility] ANTIBODY SCREEN Routine 05/11/2014 11:04 AM [facility] CULTURE, URINE Routine 05/11/2014 11:04 AM [facility] RUBELLA IGG ANTIBODY Routine 05/11/2014 11:04 AM [facility] RAPID PLASMA REAGIN Routine 05/11/2014 11:04 AM [facility] HEPATITIS B SURFACE Routine 05/11/2014 ANTIGEN 11:04 AM [facility] CYSTIC FIBROSIS MUTATION Routine 05/11/2014 11:04 AM [facility] ABORH TYPE Routine 05/11/2014 11:04 AM [facility] documented in this encounter Results * LAB SUMMARY (05/18/2014 8:10 AM CDT) Only the most recent of 3 results within the time period is included. Narrative Performed At This result has an attachment that is n ot available. Ordered by an unspecified provider. * Cystic Fibrosis Mutation (05/11/2014 11:04 AM [facility]) Cystic Fibrosis Negative for the mutations Negative for the [facility] Mutation analyzed. mutations analyzed. [facility] Ethnicity [facility] Indication for Carrier test, no family [facility] Testing history. [facility] Cystic Fibrosis ETHNICITY: [facility] Mutation [facility]ation [facility] Cystic Fibrosis [facility] Mutation [facility] Interpretation [facility] Cystic Fibrosis INDICATION: Carrier test, no [facility] Mutation family history. [facility] Interpretation [facility] Cystic Fibrosis [facility] Mutation REG[facility] Interpretation [facility] Cystic Fibrosis RESULTS: Negative for the [facility] Mutation mutations analyzed. [facility] Interpretation [facility] Cystic Fibrosis [facility] Mutation [facility]ation [facility] Cystic Fibrosis INTERPRETATION: This [facility] Mutation individual is negative for the REGION AL Interpretation 23 CF mutation LAB[facility]IES Cystic Fibrosis screening panel recommended by [facility] Mutation the [employer] REGIONAL Interpretation [employer]. LAB[facility]IES Cystic Fibrosis This individual's risk to be a [facility] Mutation carrier is reduced from 3.4% REGION[facility] Interpretation (1/29) to LABORATORIES Cystic Fibrosis approximately 0.7% (1/140) [facility] Mutation based on these results, a REGIONAL Interpretation negative family LAB[facility]IES Cystic Fibrosis history and the absence of [facility] Mutation symptoms. These results do REGIONAL Interpretation not rule out the LAB[facility]IES Cystic Fibrosis possibility that this [facility] Mutation individual could be a carrier [facility]ION[facility] L Interpretation of a mutation not LABORATORIES Cystic Fibrosis detected by this panel. [facility] Mutation REGION[facility] Interpretation LAB[facility]IES Cystic Fibrosis [facility] Mutation REG[facility] Interpretation LAB[facility]IES Cystic Fibrosis COMMENT: The CFTR gene was [facility] Mut[facility] tested for the presence of REGIONAL Interpretation specific LAB[facility]IES Cystic Fibrosis mutations by polymerase chain [facility] Mutation reaction (PCR) and allele REGIONAL Interpretation specific LAB[facility]ATORIES Cystic Fibrosis oligonucleotide hybridization. [facility] Mutation REGIONAL Interpretation LAB[facility]IES Source Blood [facility] Pathologist Reviewed by Luciano Saunders [facility] Yajaira MPepito,Ph.D. [facility] Specimen Blood Performing Organization Address [facility] Ph one Number [address] [address] LABORATORIES * Culture, Urine (05/11/2014 11:04 AM [facility]) Specimen Urine - Urine Narrative Performed At Specimen/Source: URINE/URINE [facility] Collected: 05/11/2014 11:04 REGIONAL Status: Final Last Updated: 05/12/2014 17:52 LABORATORIES Culture result (Final) No growth Performing Organization Address [facility] Ph one Number [address] [address] LABORATORIES * Antibody Screen (05/11/2014 11:04 AM [facility]) Antibody Screen Negative Negative [facility] Specimen Blood Performing Organization Address [facility] one Number [address] [address] LABORATORIES * Hepatitis B Surface Antigen (05/11/2014 11:04 AM [facility]) Hepatitis B Non-reactive Non-reactive [facility] Ag [facility] Specimen Blood Performing Organization Address [facility] Ph one Number [address] [address] LABORATORIES * Rubella IgG Antibody (05/11/2014 11:04 AM [facility]) Rubella IgG Positive [facility] Specimen Blood Performing Organization Address [facility] one Number [address] [address] LABORATORIES * Rapid Plasma Reagin (05/11/2014 11:04 AM [facility]) RPR Non-Reactive (qualifier value) Non-reactive [facility] Specimen Blood Performing Organization Address [facility] one Number [facility] [address] [place] [phone] LABORATORIES * ABORH Type (05/11/2014 11:04 AM [facility]) ABORH Type O Positive [facility] Specimen Blood Performing Organization Address [facility] one Number [facility] [address] [place] [phone] LABORATORIES * Complete Blood Count and Differential (05/11/2014 11:04 AM [facility]) WBC 5.75 4.00 - 11.00 TH/uL [facility] RBC 4.46 4.00 - 5.00 MIL/uL [facility] Hemoglobin 13.3 12.0 - 15.0 g/dL [facility] Hematocrit 40 36 - 45 % [facility] MCV 89 80 - 99 fL [facility] MCH 30 27 - 34 pg [facility] MCHC 34 32 - 36 % [facility] RDW 12.8 9.0 - 14.5 % [facility] Platelet Count 199 140 - 400 TH/uL [facility] MPV 10.9 9.4 - 12.3 fL [facility] Nucleated RBCs 0 0 - 0 /100 [facility] % Neutrophils 63 45 - 78 % [facility] %Lymphocytes 28 15 - 47 % [facility] %Monocytes 8 0 - 12 % [facility] %Eosinophils 1 0 - 7 % [facility] %Basophils 0 0 - 2 % [facility] % Imm Grans 0 0 - 1 % [facility] # Granulocytes 3.64 1.70 - 6.80 TH/uL [facility] # Lymphocytes 1.58 1.00 - 3.30 TH/uL [facility] # Monocytes 0.48 0.20 - 0.90 TH/uL [facility] # Eosinophils 0.04 0.00 - 0.40 TH/uL [facility] # Basophils 0.01 0.00 - 0.10 TH/uL [facility] Specimen Blood Performing Organization Address City/State/Zipcode Ph one Number [address] [address] LABORATORIES documented in this encounter Visit Diagnoses Not on filedocumented in this encounter
--- OUTSIDE RECORDS SUMMARY | 2019-10-03 22:13 | XMS REPORT | Encounter Summary ---
Author Author [facility] Organization [facility] Address Unknown Phone Unavailable Care Team Providers Care Electrical Project Engineer Name Role Phone PCP Unavailable Encounter Details Care Team Description Date Type Department 05/11/2014 [facility]Appointmen [facility] t Social History Date Tobacco [...]
--- OUTSIDE RECORDS SUMMARY | 2019-10-03 22:13 | XMS REPORT | Encounter Summary ---
Author Author [facility] Organization [facility] Address Unknown Phone Unavailable Care Team Providers Care Molding Fitter Name Role Phone PCP Unavailable Encounter Details Care Team Description Date [place] [address] [facility] [address] [place], [place] [address] 05/12/2014 [employer] Note [facility] [address] [place] [address] Social History Date Tobacco Use Types Packs/Day Years Used Never Assessed Sex Assigned at Date Recorded Not on file Industry Job Start Date Occupation Not on file Not on file Not on file Travel End Travel History Travel Start No recent travel history available. documented as of this encounter Miscellaneous Notes * Miscellaneous - Ledy Munguia MD - 05/12/2014 9:11 AM [employer] ARCHITECT Verified Results CBC with Diff 11May2014 11:04AM Ledy Munguia Test Name Result Flag Reference WHITE BLOOD CELL COUNT 5.75 TH/uL 4.00-11.00 Red Blood Cell Count 4.46 MIL/uL 4.00-5.00 Hemoglobin 13.3 g/dL 12.0-15.0 Hematocrit 40 % 36-45 Mean Corpuscular Volume 89 fL 80-99 Mean Corpuscular Hgb 30 pg 27-34 Mean Corpuscular Hgb Conc 34 % 32-36 Red Cell Distribution Width 12.8 % 9.0-14.5 Platelet Count 199 TH/uL 140-400 Mean Platelet Volume 10.9 fL 9.4-12.3 % Segmented Neutrophils, Auto 63 % 45-78 % Lymphocytes, Auto 28 % 15-47 % Monocytes, Auto 8 % 0-12 % Eosinophils, Auto 1 % 0-7 % Basophils, Auto 0 % 0-2 # Grans 3.64 TH/uL 1.70-6.80 # Lymphs 1.58 TH/uL 1.00-3.30 # Monos 0.48 TH/uL 0.20-0.90 # Eos 0.04 TH/uL 0.00-0.40 # Basos 0.01 TH/uL 0.00-0.10 Nucleated Rbcs 0 /100 0-0 % Imm Grans 0 % 0-1 Hepatitis B Surface Antigen 11May2014 11:04AM Ledy Munguia Test Name Result Flag Reference Hepatitis B Surface Ag Non-reactive Non-reactive Aborh Type 11May2014 11:04AM Ledy Munguia Test Name Result Flag Reference Aborh Interpretation O Positive Antibody Screen Interpretation 11May2014 11:04AM Ledy Munguia Test Name Result Flag Reference Antibody Screen Interpretation Negative Negative Rubella Igg 11May2014 11:04AM Ledy Munguia Test Name Result Flag Reference Rubella Igg Interp Positive Syphilis Serology RPR 11May2014 11:04AM Ledy Munguia Test Name Result Flag Reference Syphilis Serology Non-reactive Non-reactive [employer]B ARCHITECT * Miscellaneous - Ledy Munguia MD - 05/12/2014 9:11 AM [employer] ARCHIT[employer] Verified Results CBC with Diff 11May2014 11:04AM Ledy Munguia Test Name Result Flag Reference WHITE BLOOD CELL COUNT 5.75 TH/uL 4.00-11.00 Red Blood Cell Count 4.46 MIL/uL 4.00-5.00 Hemoglobin 13.3 g/dL 12.0-15.0 Hematocrit 40 % 36-45 Mean Corpuscular Volume 89 fL 80-99 Mean Corpuscular Hgb 30 pg 27-34 Mean Corpuscular Hgb Conc 34 % 32-36 Red Cell Distribution Width 12.8 % 9.0-14.5 Platelet Count 199 TH/uL 140-400 Mean Platelet Volume 10.9 fL 9.4-12.3 % Segmented Neutrophils, Auto 63 % 45-78 % Lymphocytes, Auto 28 % 15-47 % Monocytes, Auto 8 % 0-12 % Eosinophils, Auto 1 % 0-7 % Basophils, Auto 0 % 0-2 # Grans 3.64 TH/uL 1.70-6.80 # Lymphs 1.58 TH/uL 1.00-3.30 # Monos 0.48 TH/uL 0.20-0.90 # Eos 0.04 TH/uL 0.00-0.40 # Basos 0.01 TH/uL 0.00-0.10 Nucleated Rbcs 0 /100 0-0 % Imm Grans 0 % 0-1 Hepatitis B Surface Antigen 11May2014 11:04AM Ledy Munguia Test Name Result Flag Reference Hepatitis B Surface Ag Non-reactive Non-reactive Aborh Type 11May2014 11:04AM Ledy Munguia Test Name Result Flag Reference Aborh Interpretation O Positive Antibody Screen Interpretation 11May2014 11:04AM Ledy Munguia Test Name Result Flag Reference Antibody Screen Interpretation Negative Negative Rubella Igg 11May2014 11:04AM Ledy Munguia Test Name Result Flag Reference Rubella Igg Interp Positive Syphilis Serology RPR 11May2014 11:04AM Ledy Munguia Test Name Result Flag Reference Syphilis Serology Non-reactive Non-reactive WEB ARCHITECT documented in this encounter Plan of Treatment Not on filedocumented as of this encounter Visit Diagnoses Not on filedocumented in this encounter
== END 2019-10-03 21:32 | disposition home or self-care (01) ==
LOC: EDUNIT# 20:54 → ER FS 20:56
DX: S01.511A Laceration without foreign body of lip, initial encounter (principal); Z23 Encounter for immunization; Z88.5 Allergy status to narcotic agent; W54.0XXA Bitten by dog, initial encounter
CPT/HCPCS: 90714